=== PATIENT | female | born 1970 | race Caucasian/White ===

== ENCOUNTER → 2017-10-16 11:18 | Outpatient (CLI) | payer OTHER, SELFPAY ==
--- NOTE | 2017-10-16 11:22 | XR_ITS ---
XR cervical spine w flex/ext CLINICAL INDICATION: Neck pain ITS.REASON: pain ORDERING PHYSICIAN: Gemma Smalls MD PATIENT AGE: 47 years Comparison: None FINDINGS: There is normal alignment. There is diffuse. Hepatic skeletal hyperostosis C3-C6. C7 vertebral body is not well delineated. Mild degenerative disc disease is present at C5-C6 and C6-C7. No obvious foraminal narrowing however, the foramina are not related out well on the left posterior oblique view. No lytic or blastic change. IMPRESSION: 1. DISH of the cervical spine 2. Degenerative disc disease C5-C6 and C6-C7
[2017-10-16 12:55] LABS: Erythrocyte Sedimentation Rate 76 mm/hr (0-20)
[2017-10-16 13:53] LABS: Thyroid Stimulating Hormone 4.51 uIU/ml (0.358-3.740)
[2017-10-17 09:02] LABS: Ceruloplasmin 31.7 mg/dL (19.0-39.0); Folate 9.1 ng/mL (>3.0); Vitamin B12 523 pg/mL (232-1245)
[2017-10-17 13:12] LABS: Anti-Jo-1 <0.2 AI (0.0-0.9); Anti-Smith Antibody <0.2 AI (0.0-0.9); Antichromatin Antibodies <0.2 AI (0.0-0.9); Antiscleroderma-70 Antibodies <0.2 AI (0.0-0.9); RNP Antibodies <0.2 AI (0.0-0.9); Sjogren's Anti-SS-A <0.2 AI (0.0-0.9); Sjogren's Anti-SS-B <0.2 AI (0.0-0.9)
[2017-10-18 12:24] LABS: Anti-Centromere B Antibodies <0.2 AI (0.0-0.9); Anti-DNA (DS) Ab Qn <1 IU/mL (0-9)
== END ==
PROVIDERS: PCP Family Medicine; Visit Provider Specialist
DX: R25.1 Tremor, unspecified (principal); R26.9 Unspecified abnormalities of gait and mobility; G25.9 Extrapyramidal and movement disorder, unspecified; G95.9 Disease of spinal cord, unspecified
CPT/HCPCS: 36415; 72052; 82390; 82607; 82746; 84443; 85651; 86225; 86235

== ENCOUNTER → 2019-03-06 10:55 | Outpatient (CLI) | payer OTHER, SELFPAY ==
[2019-03-06 12:56] LABS: Alanine Aminotransferase 13 U/L (12-78); Albumin Level 2.5 gm/dL (3.4-5.0); Albumin/Globulin Ratio 0.6 (1.1-1.8); Alkaline Phosphatase 107 U/L (46-116); Anion Gap 15.8 mEq/L (5-15); Aspartate Amino Transferase 17 U/L (15-37); Bilirubin,Total 0.2 mg/dL (0.2-1.0); Blood Urea Nitrogen 15 mg/dL (7-18); Calcium 8.5 mg/dL (8.5-10.1); Carbon Dioxide 24 mmol/L (21.0-32.0); Chloride 102 mmol/L (98-107); Creatinine,Serum 1.18 mg/dL (0.55-1.02); Estimated Glomerular Filt Rate 48 ml/min (>60); GFR (African American) 59 ML/MIN (>60); Globulin 3.9 gm/dl (1.3-3.2); Glucose 174 mg/dL (74-106); Potassium 3.8 mmoL/L (3.5-5.1); Sodium 138 mmol/L (136-145); Thyroid Stimulating Hormone 0.01 uIU/ml (0.358-3.740); Total Protein,Serum 6.4 gm/dL (6.4-8.2)
[2019-03-07 11:22] LABS: Vitamin B12 383 pg/mL (232-1245); Vitamin D 25 Hydroxy 45.9 ng/mL (30.0-100.0)
== END ==
PROVIDERS: Visit Provider Nurse Practitioner Psychiatric/Mental Health
DX: Z00.00 Encounter for general adult medical examination without abnormal findings (principal); F25.9 Schizoaffective disorder, unspecified; Z79.899 Other long term (current) drug therapy
CPT/HCPCS: 36415; 80053; 80165; 82607; 82652; 84443

== ENCOUNTER 2021-10-25 18:43 | Emergency (ER) | payer OTHER, SELFPAY ==
[2021-10-25 19:09] VITALS: BP 96/65; PULSE 80; RESP 18; TEMP 36.5; O2SAT 95; BMI 37.2
--- NOTE | 2021-10-25 19:11 | XR_ITS ---
PROCEDURE INFORMATION: Exam: XR Left Knee Exam date and time: 10/25/2021 7:30 PM Age: 51 years old Clinical indication: Pain; Knee; Bilateral TECHNIQUE: Imaging protocol: Radiologic exam of the Left knee. Views: 1 or 2 views. COMPARISON: No relevant prior studies available. FINDINGS: Bones/joints: Generalized osteopenia. Mild narrowing medial knee compartment. Mild patellofemoral degenerative changes. Soft tissues: Normal. IMPRESSION: 1. No evidence of acute osseous injury. 2. Mild-moderate degenerative osteoarthritis primarily involving the medial knee compartment.
--- NOTE | 2021-10-25 19:11 | XR_ITS ---
PROCEDURE INFORMATION: Exam: XR Right Knee Exam date and time: 10/25/2021 7:30 PM Age: 51 years old Clinical indication: Pain; Knee; Bilateral TECHNIQUE: Imaging protocol: Radiologic exam of the Right knee. Views: 1 or 2 views. COMPARISON: No relevant prior studies available. FINDINGS: Bones/joints: Osteopenia. Findings most pronounced involving the proximal tibia. Mild-moderate narrowing of the medial knee compartment and the patellofemoral articulation. Preservation of the lateral knee compartment. Soft tissues: Unremarkable IMPRESSION: 1. No evidence of acute osseous injury. 2. Tricompartmental degenerative osteoarthritis. Findings most pronounced medial knee compartment.
--- NOTE | 2021-10-25 19:23 | [facility].EDGENADL ---
ED Disposition Clinical Impression: Thrombocytopenia, Arthritis of both knees Disposition: Home, Self-Care Condition on Discharge: Good Instructions: Platelet Count Referrals: Katia Gonzalez [Primary Care Provider] - - Critical Care Critical Care Time: No Attestation: On 10/25/21, the high probability of a clinically significant, sudden or life threatening deterioration of the following system(s) required my full and direct attention, intervention and personal management. The time I documented below is in addition to time spent performing reported procedures but includes the following listed in this critical care notation. Medical Decision Making - Medical Records Medical records reviewed: Yes: I reviewed the patient's medical records. - [place] Inquiry Pt receiving controlled substance: No Vital Signs: 10/25/21 19:09 Temperature 97.7 F Temperature Source Oral Pulse Rate [Apical] 80 Respiratory Rate 18 Blood Pressure [Right Arm] 96/65 L Blood Pressure Mean [Right Arm] 75 Blood Pressure Source [Right Arm] Automatic Cuff Blood Pressure Position [Right Arm] Sitting 02 Sat by Pulse Oximetry 95 Oxygen Delivery Method Room Air - Lab Data Lab Results 10/25/21 19:14: WBC 8.4, RBC 3.82 L, Hgb 13.1, Hct 40.4, MCV 105.8 H, MCH 34.2 H, MCHC 32.3, RDW 14.9, Plt Count 130 L, MPV 8.8, Neut % (Auto) 38.6, Lymph % (Auto) 54.5 H, [place] % (Auto) 3.7, Eos % (Auto) 2.8, Baso % (Auto) 0.5, Neut # (Auto) 3.2, Lymph # (Auto) 4.6 H, [place] # (Auto) 0.3, Eos # (Auto) 0.2, Baso # (Auto) 0.0 10/25/21 19:14: Sodium 137, Potassium 4.1, Chloride 103, Carbon Dioxide 28, Anion Gap 10.1, BUN 18 H, Creatinine 1.40 H, Estimated Creat Clear 70, Estimated GFR 39 L, Est GFR ( Amer) 48 L, Glucose 118 H, Calcium 10.4 H, Total Bilirubin 0.6, AST 20, ALT 8 L, Alkaline Phosphatase 136 H, Total Protein 7.4, Albumin 3.7, Globulin 3.7 H, Albumin/Globulin Ratio 1.0 L Result diagrams: 10/25/21 19:14 10/25/21 19:14 Orders (Tests/Meds): ED MEDICATIONS Discontinued Medications Generic Name Dose Route Start Last Admin Trade Name Romain PRN Reason Stop Dose Admin Morphine Sulfate 4 mg 10/25/21 19:11 Morphine 4mg/Ml Syringe IV 10/25/21 19:12 ONCE ONE Ondansetron HCl 4 mg 10/25/21 19:11 Ondansetron 4mg/2ml Vial IV 10/25/21 19:12 ONCE ONE ORDERS Category Date Time Status XR knee LT 2V Stat Exams 10/25/21 19:11 Taken XR knee RT 2V Stat Exams 10/25/21 19:11 Taken Complete Blood Count Auto Diff Stat Lab 10/25/21 19:14 Results - Radiology Data #1 Image(s): Knee Image Reviewed: Yes I reviewed the patient's radiology results, Yes I reviewed the patient's radiology image, Yes I have reviewed radiologist's interpretation Bilateral osteoarthritis. No acute fracture - Reevaluation(s) Time: 20:03 Reevaluation #1: On reevaluation, patient is feeling much better. She has not been complaining of any pain while in the emergency department. She does have some low platelets likely contributing to her bruising symptoms. Patient needs follow-up with PCP in 48 hours. Given strict return precautions. Verbalized understanding. Medical Decision Narrative: This is a 51-year-old female with significant chronic medical conditions presenting to the emergency department for evaluation of knee pain. The patient has no obvious deformity. 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 Work-up will be initiated. General Adult HPI - General Chief complaint: Weakness Stated complaint: knots legs, weakness in legs Time Seen by Provider: 10/25/21 19:10 Mode of Arrival: Wheelchair Limitations: No Limitations Description of Symptoms (Recalled from ER Triage Doc. by RN): Pt arrived pov c spouse. Pt is non verbal with doron body dementia and parkinsons. Per spouse, pt has been having weakness and decreased mobility with knee pain and knots on bilateral legs with
[2021-10-25 19:41] LABS: Basophils % 0.5 % (0.1-2.0); Eosinophils # 0.2 K/mm3 (0.0-0.4); Eosinophils % 2.8 % (0.1-12.0); Hematocrit 40.4 % (37.0-47.0); Hemoglobin 13.1 g/dL (12.2-16.2); Lymphocytes # 4.6 K/mm3 (0.7-4.5); Lymphocytes % 54.5 % (10-50); Mean Corpuscular HGB Conc 32.3 g/dL (31.8-35.4); Mean Corpuscular Hemoglobin 34.2 pg (27.0-31.2); Mean Corpuscular Volume 105.8 fl (81-99); Mean Platelet Volume 8.8 fl (7.4-10.4); Monocytes # 0.3 K/mm3 (0.1-1.0); Monocytes % 3.7 % (1.7-9.3); Neutrophils # 3.2 K/mm3 (1.8-7.8); Neutrophils % 38.6 % (37.0-80.0); Platelet Count 130 K/mm3 (142-424); Red Blood Count 3.82 M/mm3 (4.20-5.40); Red Cell Distribution Width 14.9 % (11.5-17.5); White Blood Count 8.4 K/mm3 (4.8-10.8)
[2021-10-25 19:44] LABS: Chloride 103 mmol/L (98-107)
[2021-10-25 19:45] LABS: Potassium 4.1 mmoL/L (3.5-5.1); Sodium 137 mmol/L (136-145)
[2021-10-25 19:47] LABS: Alanine Aminotransferase 8 U/L (12-78); Albumin Level 3.7 g/dl (3.5-5.0); Alkaline Phosphatase 136 U/L (38-126); Anion Gap 10.1 mEq/L (5-15); Aspartate Amino Transferase 20 U/L (14-36); Bilirubin,Total 0.6 mg/dl (0.2-1.3); Blood Urea Nitrogen 18 mg/dl (7-17); Carbon Dioxide 28 mmol/L (22.0-30.0); Creatinine Clearance Estimated 70 mL/min (50-200); Estimated Glomerular Filt Rate 39 ml/min (>60); GFR (African American) 48 ML/MIN (>60); Globulin 3.7 g/dL (1.3-3.2); Total Protein,Serum 7.4 g/dl (6.3-8.2)
[2021-10-25 19:48] LABS: Calcium 10.4 mg/dl (8.4-10.2); Glucose 118 mg/dl (74-100); MANUAL DIFFERENTIAL MANUAL DIFFERENTIAL (MANUAL DIFF)
[2021-10-25 20:49] LABS: Eosinophils % 3 % (0-3); Lymphocytes % 55 % (10-50); Monocytes % 3 % (2-9); Neutrophils % 39 % (42-76); Platelet Estimate Normal; Total Cells Counted 100
[2021-10-25 20:50] LABS: Macrocytosis 1+
[2021-10-25 21:35] VITALS: BP 95/54; PULSE 87; RESP 18; TEMP 36.8; O2SAT 99
== END 2021-10-25 21:37 | disposition home or self-care (01) ==
PROVIDERS: Emergency Provider Emergency Medicine; PCP Family Medicine
DX: D69.6 Thrombocytopenia, unspecified (principal); M17.0 Bilateral primary osteoarthritis of knee; G31.83 Neurocognitive disorder with Lewy bodies; F02.80 Dementia in other diseases classified elsewhere, unspecified severity, without behavioral disturbance, psychotic disturbance, mood disturbance, and anxiety; G20 Parkinson's disease; E78.5 Hyperlipidemia, unspecified; I10 Essential (primary) hypertension; F32.A Depression, unspecified; K21.9 Gastro-esophageal reflux disease without esophagitis; R00.2 Palpitations; N28.9 Disorder of kidney and ureter, unspecified; F20.9 Schizophrenia, unspecified
CPT/HCPCS: 73560; 80053; 85007; 85025; 96374; 96375; 99284; J2405